=== PATIENT | female | born 1955 | race Caucasian/White ===

== ENCOUNTER → 2017-09-01 16:24 | Outpatient (CLI) | payer OTHER, SELFPAY ==
[2017-09-07 15:51] LABS: HPV Reflexed? NOT INDICATED
== END ==
PROVIDERS: Family Provider Internal Medicine; PCP Internal Medicine; Visit Provider Obstetrics & Gynecology
DX: Z12.4 Encounter for screening for malignant neoplasm of cervix (principal)
CPT/HCPCS: 88175; G0145

== ENCOUNTER → 2017-09-10 08:05 | Outpatient (CLI) | payer OTHER, SELFPAY ==
[2017-09-10 09:53] LABS: Hemoglobin 13.2 g/dl (12.0-15.0); Mean Corp Hgb Conc 33.8 g/gl (32-36); Mean Corpuscular Volume 85.7 fL (81-99); Mean Platelet Vol. 10.3 fl (6.2-12.0); Platelet Count 249 K/mm3 (150-450); RBC Distribution Width CV 13.6 % (11.6-14.6); RBC Distribution Width SD 41.9 fl (35.1-43.9); Red Blood Count 4.55 M/mm3 (4.2-5.4); White Blood Count 5.5 K/mm3 (4.4-11.0)
[2017-09-10 09:54] LABS: Scan Indicated on CBC? Y/N NO
[2017-09-10 10:20] LABS: ALB/GLOB Ratio 1.1 RATIO (0.9-2.4); AST(SGOT) 16 U/L (15-37); Alanine Aminotransfer ALT/SGPT 45 U/L (13-56); Alkaline Phosphatase 116 U/L (45-117); Anion Gap 9 (5-15); BUN 15 mg/dL (7-18); BUN/Creat Ratio 15.9 RATIO (10-20); Calcium,Total 8.7 mg/dL (8.5-10.1); Chloride 101 mmol/L (98-107); Cholesterol 207 mg/dL (200); Creatinine, Serum 0.94 mg/dL (0.55-1.02); EST Glomerular Filtration Rate 64 mL/min (>60); Est Glom Filt Rate - Afr Amer 77 mL/min (>60); Globulin 3.8 g/dL (2.2-4.2); Glucose 195 mg/dL (74-106); High Density Lipoprotein 70 mg/dL; Potassium 4.2 mmol/L (3.5-5.1); Protein, Total 7.8 g/dL (6.4-8.2); Sodium Level 138 mmol/L (136-145); Thyroid Stim Hormone (TSH) 5.43 uIU/mL (0.358-3.74); Triglycerides 91 mg/dL; Very Low Density Lipoprotein 18 mg/dL (5-40)
[2017-09-10 10:23] LABS: Microalbumin,Random Urine 20.1 mg/L (NO RANGE EST.)
[2017-09-10 11:05] LABS: Hemoglobin A1c 8.7 % (4.2-6.3)
== END ==
PROVIDERS: Family Provider Internal Medicine; PCP Internal Medicine; Visit Provider Internal Medicine
DX: I10 Essential (primary) hypertension (principal); E03.9 Hypothyroidism, unspecified; E11.9 Type 2 diabetes mellitus without complications
CPT/HCPCS: 36415; 80053; 80061; 82043; 83036; 84443; 85027

== ENCOUNTER → 2017-09-13 11:51 | Outpatient (CLI) | payer OTHER, SELFPAY ==
--- NOTE | 2017-09-13 11:52 | HPBI_ITS ---
MAMMOGRAPHY - BILATERAL SCREENING REASON FOR EXAM: Female, 62 years old. Routine annual screening examination. PERTINENT HISTORY: Non-contributory. TECHNIQUE: Digital bilateral breast rashawn (3D mammographic acquisition) in the CC and MLO projections. 2-D mediolateral oblique (MLO) and craniocaudad (CC) views of both breasts were obtained. CAD: Full Field Digital Mammography with Computer Added Detection was performed. COMPARISON: Comparison is made with prior examination dated September 11, 2016 and April 29, 2015. FINDINGS: Breast Composition: The breasts are heterogeneously dense, which may obscure small masses. There are no dominant masses or suspicious calcifications. There are 3 ringlike calcified nodules in the upper outer aspect of the right breast. The largest measuring 4.7 mm. These may represent calcifying fibroadenomas. No other significant abnormalities are identified. There has been no significant change since the prior study. HPBI/SCREENING MAMM (CAD), BILAT IMPRESSION: Stable bilateral screening mammogram. Yearly follow-up mammogram recommended. (A) ASSESSMENT CATEGORY: BIRADS Category 2: Benign. A letter regarding these results will be sent to the patient by the facility within 30 days. Approximately 10% of breast cancers are not detected by mammography. A normal mammogram should not delay biopsy of a clinically suspicious abnormality. [id number] Electronically Signed: Wenceslao Muir MD at 13:30 EST Tel [phone], Service support ,
== END ==
PROVIDERS: Family Provider Internal Medicine; PCP Internal Medicine; Visit Provider Obstetrics & Gynecology
DX: Z12.31 Encounter for screening mammogram for malignant neoplasm of breast (principal); Z78.0 Asymptomatic menopausal state
CPT/HCPCS: 77063; 77067

== ENCOUNTER → 2017-09-14 10:56 | Outpatient (CLI) | payer OTHER, SELFPAY ==
--- NOTE | 2017-09-14 10:59 | HPBD_ITS ---
STUDY: DUAL ENERGY X-RAY ABSORPTIOMETRY / DXA REASON FOR EXAM: Female, 62 years old. The patient is postmenopausal. No loss of height. TECHNIQUE: Bone Mineral Density (BMD) measurements of lumbar spine and bilateral hips were obtained. COMPARISON: None. FINDINGS: Lumbar Spine (L1-L4): g/cm2 (1.218) / T-score (0.3) / Z-score (1.8) Findings are suggestive of normal bone density with a low fracture risk. Left Femur Total: g/cm2 (0.991) / T-score (-0.1) / Z-score (1.0) Left Femoral Neck: g/cm2 (0.997) / T-score (-0.3) / Z-score (1.1) Right Femur Total: g/cm2 (0.955) / T-score (-0.4) / Z-score (0.7) Right Femoral Neck: g/cm2 (1.004) / T-score (-0.2) / Z-score (1.1) HPBD/Dexa Bone Density Study (HP) IMPRESSION: The patient is considered normal as outlined below according to World Jose Organization (WHO) criteria with a low fracture risk. Reference Information: The T-score is the number of standard deviations above or below the standard which is normal for young adults at their peak bone mineral density. The World Health Organization (WHO) interprets the T-scores as follows: Above -1 Normal bone density Between -1 and -2.5 Osteopenia Equal to / or below -2.5 Osteoporosis As a practical clinical guideline, osteopenia may be graded as follows: Mild -1 through -1.5 Moderate -1.6 through -2.0 Severe -2.1 through -2.4 The Z-score is the number of standard deviations above or below age-matched controls. A Z-score of less than -1.5 would be considered abnormal. References: 1. NIH Osteoporosis and Related Bone Diseases http://www.osteo.org 2. International Society for Clinical Densitometry http://www.iscd.org 3. National Osteoporosis Foundation http://www.nof.org Electronically Signed: Wenceslao Muir MD at 12:31 EST Tel [phone], Service support ,
== END ==
PROVIDERS: Family Provider Internal Medicine; PCP Internal Medicine; Visit Provider Obstetrics & Gynecology
DX: Z78.0 Asymptomatic menopausal state (principal)
CPT/HCPCS: 77080

== ENCOUNTER → 2020-08-02 10:00 | Outpatient (CLI) | payer MEDICARE, OTHER, SELFPAY ==
[2020-08-02 15:21] LABS: Probe Check PASS; Specimen Processing Control PASS
== END ==
PROVIDERS: Referring Provider Surgery; Visit Provider Surgery
DX: U07.1 COVID-19 (principal)
CPT/HCPCS: 87426; 87635; C9803; U0002

== ENCOUNTER 2024-07-08 18:36 | Emergency (ER) | payer MEDICARE, OTHER, SELFPAY ==
[2024-07-08 18:37] VITALS: BP 137/74; PULSE 102; RESP 16; TEMP 36.7; O2SAT 98; BMI 24.9
--- NOTE | 2024-07-08 18:53 | EKG12_ITS ---
Test Reason : DYSRHYTHMIA Blood Pressure : */* mmHG Vent. Rate : 97 BPM Atrial Rate : 97 BPM P-R Int : 146 ms QRS Dur : 70 ms QT Int : 356 ms P-R-T Axes : 23 -42 -1 degrees QTcB Int : 452 ms Normal sinus rhythm Left axis deviation Abnormal ECG Confirmed by KEN LUND, LIZET ([id number]), photography editor SHELBY BRANNON ([id number]) on 07/12/2024 1:38:54 P M Referred By: Confirmed By: LIZET ROGERS MD
--- NOTE | 2024-07-08 18:54 | EX.ED.DYSGE1 ---
HPI History of Present Illness Chief Complaint: Fatigue Informant: patient, spouse/S.O. and family Narrative Narrative: 69-year-old female has been fatigued for about 2 weeks. She had some nausea and vomiting today after eating a piece of fruit. No abdominal pain no chest pain no cough or dyspnea even with exertion, or orthopnea. She has had no other symptoms. No fevers or chills at all. No headaches. No focal neurologic symptoms. Patient just states she has been sleeping a lot. Family states they are concerned because this is not like her which is why they brought her. She lives in [place] here visiting family. No recent medication changes. She is diabetic her sugars have been running good. Denies any recent illness that she can recall. [facility] Medical History (Updated 07/08/24 @ 21:[address] Torsten Huggins MD) Hypothyroidism Type 2 diabetes mellitus Hypertension Encounter for screening for malignant neoplasm of colon Home Medications ?Medication ?Instructions ?Recorded ?Last Taken ?Type amlodipine 5 mg tablet 5 mg PO DAILY 08/13/17 08/16/17 06:10 History citalopram 20 mg tablet 20 mg PO DAILY 08/13/17 Unknown History levothyroxine 100 mcg tablet 100 mcg PO DAILY 08/13/17 08/16/17 06:10 History losartan 25 mg tablet 25 mg PO DAILY 07/30/20 Unknown History insulin glargine 100 unit/mL (3 unit subcut 07/08/24 Unknown History mL) subcutaneous pen (Basaglar KwikPen U-100 Insulin) Allergy/AdvReac Type Severity Reaction Status Date / Time No Known Allergies Allergy Verified 07/08/24 18:40 Family History (Updated 08/30/17 @ 09:41 by Simona Moser) Father Colon cancer Diabetes Skin cancer Sister Thyroid disorder Surgical History (Updated 08/30/17 @ 09:40 by Simona Moser) S/P colonoscopy (~08/16/17) Social History Smoking Status: Never smoker ROS ROS ED Constitutional Constitutional ED: Reports anorexia and fatigue; Denies body ache(s), chills or fever(s) Eyes Eyes: Denies change in vision or diplopia ENT ENT ED: Denies rhinorrhea or sore throat Cardiovascular Cardiovascular: Denies chest pain or palpitations Respiratory/Chest Respiratory/Chest: Denies cough or dyspnea Gastrointestinal Gastrointestinal: Reports nausea and vomiting; Denies abdominal pain or diarrhea Genitourinary Genitourinary ED: Denies dysuria or hematuria Musculoskeletal Musculoskeletal: Denies back pain or neck pain Integumentary Denies abscess or rash Neurologic Neurologic: Denies headache(s), paresthesias or weakness Psychiatric Psychiatric: Denies anxiety or suicidal thoughts EXAM Physical Exam Const Vital Signs: 07/08/24 18:37 07/08/24 20:00 07/08/24 20:48 Temperature 98.1 F 98.1 F Temperature Source Temporal Temporal Pulse Rate 102 H 92 Respiratory Rate 16 23 H Respiratory Effort Normal Non-Labored Respiratory Pattern Normal Blood Pressure 137/74 H 118/66 Blood Pressure Mean 95 83 Pulse Ox 98 94 Oxygen Delivery Method Room Air Room Air Positive well nourished and well developed General Appearance ED: well developed and NAD HEENT Reports moist mucous membranes normocephalic and atraumatic Eyes PERRL and EOMs intact bilaterally Neck full ROM, no lymphadenopathy and supple Neck Narrative: No palpable thyromegaly Resp normal respiratory effort and clear to auscultation bilaterally Cardio regular rate, regular rhythm and no murmurs Rate: Negative for tachycardic GI non-tender and non-distended Auscultation: normoactive bowel sounds Palpation: soft Back/Spine no CVA tenderness General Back: other FROM Extremity normal to inspection General Extremety ED: Negative for edema, pulses abnormal or tenderness General Extremity: Negative for edema or pulses abnormal Neuro oriented x3, CN's II-XII intact bilaterally and no sensory deficits noted Sensorium / Orientation: awake and alert Motor Exam: strength 5/5 throughout Psych mental status grossly normal Skin no rashes or lesions noted and no wounds MDM MDM MDM Narrative Medical decision making narrative: 69-year-old diabetic female, no urinary symptoms, respiratory symptoms, she vomited today for the first time and has been fatigued for 2 weeks. Broad differential. Cardiopulmonary, anemia, metabolic abnormalities are possible, also infection such as mononucleosis, thyroid imbalance. Blood work shows worrisome leukocytosis, significant hyponatremia along with hypochloremia, DELMER possibly due to dehydration, elevated troponin in context of a normal EKG (except for left axis but no old available), and elevated alkaline phosphatase but normal liver enzymes otherwise, and a significantly elevated TSH. The patient is on thyroid replacement medication and the dose has not changed and she has been compliant with it. Monotest is negative. Two-view chest x-ray my interpretation is normal, radiology is in agreement. I reexamined the patient she does have some tenderness in the lateral right lower quadrant. She denies ever experiencing any pain in this area or anywhere else in her abdomen in the last month that she can recall. Given all of this I think a CT of the abdomen/pelvis is warranted. I reviewed the images as well as result which I agree with. It is consistent with a periappendiceal abscess/collection 7 x 9 x 5.9 cm containing gas with an appendicolith and dilated 1.5 cm appendix. Zosyn started. Discussed with surgery who recommends IR drainage with a drain, surgery not indicated from him at this time, and since we do not have IR here on the weekends, he recommends transfer given her leukocytosis, so that she can get it drained as soon as possible. Discussed with family, we decided on [facility]. Spoke with Dr. Flores there who accepts the patient and agrees with all of the above, patient likely to get IR procedure tomorrow, Wednesday. Zosyn is being given, and I am letting the patient have clear fluids and some crackers if she wishes in the meantime Lab Data Attestation: I reviewed the patient's lab results. Labs: Laboratory Results - last 24 hr 07/08/24 07/08/24 19:03 20:35 WBC 20.5 H RBC 3.51 L Hgb 10.2 L Hct 30.5 L MCV 86.9 MCH 29.1 MCHC 33.4 RDW Std Deviation 42.8 RDW Coeff of Noah 13.5 Plt Count 365 MPV 8.5 Immature Gran % (Auto) 1.100 H Neut % (Auto) 78.1 H Lymph % (Auto) 8.2 L [place] % (Auto) 12.3 H Eos % (Auto) 0.1 Baso % (Auto) 0.2 Absolute Neuts (auto) 16.0 H Absolute Lymphs (auto) 1.68 Nucleated RBC % 0 Differential Comment SCANNED Diff Path Review May foll Sodium 123 L Potassium 4.3 Chloride 91 L Carbon Dioxide 22.0 Anion Gap 10 BUN 22 H Creatinine 1.35 H Estim Creat Clear Calc 36.19 Est GFR (MDRD) Af Amer 50 L Est GFR (MDRD) Non-Af 41 L BUN/Creatinine Ratio 16.3 Glucose 257 H Calcium 8.6 Total Bilirubin 0.70 AST 40 H ALT 55 Alkaline Phosphatase 311 H Troponin I High Sens 58 H Total Protein 7.6 Albumin 2.2 L Globulin 5.4 H Albumin/Globulin Ratio 0.4 L Lipase 55 TSH 11.200 H Urine Color Yellow Urine Clarity Clear Urine pH 6.0 Ur Specific [place] 1.010 Urine Protein 30 H Urine Glucose (UA) Normal Urine Ketones Negative Urine Occult Blood 10 H Urine Nitrite Negative Urine Bilirubin Negative Urine Urobilinogen Normal Ur Leukocyte Esterase 25 H Urine RBC 0-5 SEEN Urine WBC 0-5 SEEN Ur Squamous Epith Cells 5-10 SEEN Ur Transition Epith Cell 5-10 SEEN Urine Bacteria RARE Urine Mucus 0 SEEN Monoscreen Negative Radiography Diagnostic Testing: Clinical Impression(s) from Imaging Studies Chest X-Ray 07/08/24 19:25 IMPRESSION: No radiographic evidence of acute cardiopulmonary disease. Electronically Signed: Rebecca Smith MD at 20:02 EST Reading Location ID and State: Celia Baer MD Tel , Service support , Abdomen/Pelvis CT 07/08/24 19:47 IMPRESSION: Periappendiceal collection consistent with acute ruptured appendicitis. Electronically Signed: Rebecca Smith MD at 20:49 EST Reading Location ID and State: Celia Baer MD Tel , Service support , Rhythm Strip Rhythm Strip: Sinus Rhythm Rate: 97 Ectopy: None EKG Initial EKG: Attestation: I personally reviewed and interpreted this EKG as follows: Interpretation: Sinus Rhythm, No Acute Injury Pattern and LAFB Comments: leftward axis; nml intervals; otherwise nml EKG Prior EKG tracings: not available for review Prior: No Prior Management Discussion w/another healthcare provider: Forensic Chemist (Surgery Dr. Montgomery) and Radiologist Critical Care Time Critical Care Time: Yes Critical care time (excluding procedures): 30-74 minutes (34 min), Including time spent:, Discussing w/Patient &/or Family/Violin Restorer, Discussing w/Consultants, Arranging Admission or Transfer and Performing Direct Patient Care at Bedside Discharge Plan Triage Chief Complaint: Fatigue ED Provider: Torsten Huggins Dx/Rx/DC Orders Clinical Impression: Acute appendicitis with rupture, Abscess, periappendiceal, Acute hyponatremia, DELMER (acute kidney injury), Hypothyroid Prescriptions: No Action metformin 500 MG tablet 1,000 mg PO BID amlodipine 5 MG tablet 5 mg PO DAILY levothyroxine 100 MCG tablet 100 mcg PO DAILY citalopram 20 MG tablet 20 mg PO DAILY syqbcdawusvo-Dt-xsiu-minerals 1 EACH tablet 2 ea PO DAILY ascorbic acid (vitamin C) 250 MG tablet,chewable 1,000 mg PO DAILY losartan 25 MG tablet 25 mg PO DAILY pravastatin 20 MG tablet 20 mg PO QHS empagliflozin 25 MG tablet 25 mg PO DAILY Primary Care Provider: KAIA ARAIZA Referrals: KAIA ARAIZA [Other] Print Language: Malaysian Disposition Disposition: Acute Care Hospital Discharge Location: [facility]
[2024-07-08 19:13] LABS: Absolute Lymphocyte Count 1.68 X10^3/uL (0.83-4.51); Basophil# 0.05 X10^3/uL; Basophil% 0.2 % (0-1); Eosinophil# 0.03 X10^3/uL; Eosinophils% 0.1 % (0-5); Hematocrit 30.5 % (37-47); Hemoglobin 10.2 g/dL (12.0-15.0); Lymphocyte # 1.68 X10^3/ul (0.83-4.51); Lymphocyte % 8.2 % (19-41); Mean Corp Hgb Conc 33.4 g/dL (32-36); Mean Corpuscular Hgb 29.1 pg (27.0-32.0); Mean Corpuscular Volume 86.9 fL (81-99); Mean Platelet Vol. 8.5 fl (6.2-12.0); Monocyte# 2.52 X10^3/uL; Monocyte% 12.3 % (0-10); NRBC Flagged by Analyzer 0 % (0-5); Neutrophil % 78.1 % (47-70); POSITIVE DIFFERENTIAL YES; Platelet Count 365 K/mm3 (150-450); RBC Distribution Width CV 13.5 % (11.6-14.6); RBC Distribution Width SD 42.8 fl (35.1-43.9); Red Blood Count 3.51 M/mm3 (4.2-5.4); White Blood Count 20.5 K/mm3 (4.4-11.0)
--- NOTE | 2024-07-08 19:25 | RAD_ITS ---
INDICATION: weakness, vomiting EXAMINATION/TECHNIQUE: X-RAY - XR Chest 2 Views COMPARISON: FINDINGS: LINES/DEVICES: None. LUNGS: No consolidation, edema or effusion. No pneumothorax. MEDIASTINUM AND CARDIOVASCULAR STRUCTURES: Cardiac silhouette not enlarged. Central airways and mediastinal contour are unremarkable. BONES AND SOFT TISSUES: Unremarkable. RAD/Chest PA and Lateral IMPRESSION: No radiographic evidence of acute cardiopulmonary disease. Electronically Signed: Rebecca Smith MD at 20:02 EST Reading Location ID and State: [id number] / Tel , Service support ,
[2024-07-08 19:36] LABS: Differential Indicated SCAN CRITERIA MET
[2024-07-08 19:43] LABS: ALB/GLOB Ratio 0.4 RATIO (0.9-2.4); AST(SGOT) 40 U/L (15-37); Alanine Aminotransfer ALT/SGPT 55 U/L (13-56); Albumin, Serum 2.2 g/dL (3.2-5.0); Alkaline Phosphatase 311 U/L (45-117); Anion Gap 10 (5-15); BUN 22 mg/dL (7-18); BUN/Creat Ratio 16.3 RATIO (10-20); Calcium,Total 8.6 mg/dL (8.5-10.1); Chloride 91 mmol/L (98-107); Creatinine, Serum 1.35 mg/dL (0.55-1.02); EST Glomerular Filtration Rate 41 mL/min (>60); Est Glom Filt Rate - Afr Amer 50 mL/min (>60); Estimated Creatinine Clearance 36.19 ml/min; Globulin 5.4 g/dL (2.2-4.2); Glucose 257 mg/dL (74-106); Potassium 4.3 mmol/L (3.5-5.1); Protein, Total 7.6 g/dL (6.4-8.2); Sodium Level 123 mmol/L (136-145); Troponin-I HS 58 pg/mL (3.0-54.0)
[2024-07-08 19:47] LABS: Internal QC Validated? YES +Cl - CLEAR BKGD; Monotest Negative (Negative)
--- NOTE | 2024-07-08 19:47 | CT_ITS ---
We are attempting to reach an attending provider to discuss findings. An addendum with communication details will be sent when the communication is complete. EXAM: CT ABDOMEN AND PELVIS WITH INTRAVENOUS CONTRAST CLINICAL INDICATION: n/v, leukocytosis TECHNIQUE: Helically acquired images were obtained of the abdomen and pelvis with intravenous contrast. This CT exam was performed using one or more of the following dose reduction techniques: automated exposure control, adjustment of the mA and/or kV according to patient size, and/or use of iterative reconstruction technique. CONTRAST: IV 75mL Isovue-370 COMPARISON: No relevant prior studies available. FINDINGS: LOWER THORAX: Unremarkable. Lung bases are clear. No cardiomegaly. No significant pericardial effusion. ABDOMEN: LIVER: Unremarkable. Homogeneous. No focal mass. GALLBLADDER AND BILE DUCTS: Unremarkable. No calcified gallstones. No gallbladder distention or wall edema. No intra- or extrahepatic biliary ductal dilation. PANCREAS: Unremarkable. No focal cystic or solid mass. SPLEEN: Unremarkable. Normal size without focal cystic or solid mass. ADRENALS: Unremarkable. No nodules. KIDNEYS AND URETERS: Unremarkable. Normal renal size and position. No hydronephrosis. STOMACH AND BOWEL: No proximal small bowel obstruction. PELVIS: APPENDIX: 7 x 9 x 5.9 cm gas-containing periappendiceal collection in the right lower quadrant along the medial aspect of the cecum, highly suspicious for acute appendicitis with contained perforation. No free air or free fluid. The appendix is dilated measuring up to 1.5 cm. 0.6 cm appendicolith at the base. Moderate stranding of the periappendiceal and pericecal fat. BLADDER: Unremarkable. REPRODUCTIVE: Unremarkable as visualized. No mass. ABDOMEN and PELVIS: INTRAPERITONEAL SPACE: No ascites. No free air. BONES/JOINTS: Unremarkable. No suspicious lytic or blastic abnormality. SOFT TISSUES: Unremarkable. No discrete abdominal or pelvic wall hernia. VASCULATURE: Unremarkable. Abdominal aorta is normal in caliber. LYMPH NODES: Unremarkable. No enlarged lymph nodes. CT/Abdomen/Pelvis W IV Cont ONLY IMPRESSION: Periappendiceal collection consistent with acute ruptured appendicitis. Electronically Signed: Rebecca Smith MD at 20:49 EST Reading Location ID and State: [id number] / Tel , Service support ,
[2024-07-08 19:48] LABS: Record Kit Lot#, Mono 13241033
[2024-07-08] MEDS: 0.9% Normal Saline (1000mL) 1,000 ML 999 ML IV (19:59)
[2024-07-08 20:00] VITALS: BP 118/66; PULSE 92; RESP 23; TEMP 36.7; O2SAT 94
[2024-07-08 20:10] LABS: Differential Comment SCANNED
[2024-07-08 20:28] LABS: Lipase 55 U/L (13-75)
[2024-07-08] MEDS: 0.9% Normal Saline (1000mL) 1,000 ML 150 ML IV (20:38)
[2024-07-08 20:44] LABS: Mucous, Urine 0 SEEN /hpf (<or=2+)
[2024-07-08 20:49] LABS: Color, Urine Yellow (Yellow); Glucose, Dipstick Normal (Normal); Ketone-Dipstick Negative (Negative); Leukocyte Esterase-Dipstick 25 /ul (Negative); Nitrite-Dipstick Negative (Negative); Occult Blood-Urine 10 /ul (Negative); Protein-Dipstick 30 mg/dl (Negative); Urine Bilirubin Dipstick Negative (Negative); Urine Clarity Clear (Clear); Urine Urobilinogen Normal (Normal)
[2024-07-08 20:56] LABS: Bacteria RARE /hpf (None Seen); Red Blood Cells-Urine 0-5 SEEN /hpf (0-5); Squamous Epithelial Cells - UA 5-10 SEEN /hpf (5-10); Transitional Epithelial - Ur 5-10 SEEN /hpf (0-5); White Blood Cells 0-5 SEEN /hpf (0-5)
[2024-07-08 21:00] VITALS: BP 114/60; PULSE 92; RESP 25; TEMP 36.2; O2SAT 94
[2024-07-08] MEDS: Piperacil/Tazobactam 3.375 GM in 0.9% Normal Saline (50mL MB+) 50 ML IV (21:17)
[2024-07-08 21:30] LABS: Troponin-I HS 28 pg/mL (3.0-54.0)
[2024-07-08 22:00] VITALS: BP 112/58; PULSE 84; RESP 18; TEMP 36.2; O2SAT 91
[2024-07-08 23:00] VITALS: BP 111/61; PULSE 81; RESP 18; TEMP 37.2; O2SAT 94
[2024-07-09] VITALS: BP 114/57; PULSE 82; RESP 17; TEMP 37.2; O2SAT 92
[2024-07-09 01:00] VITALS: BP 98/49; PULSE 81; RESP 14; TEMP 36.4; O2SAT 92
[2024-07-09 02:00] VITALS: BP 98/49; PULSE 81; RESP 14; TEMP 36.4; O2SAT 92
[2024-07-11 15:14] LABS: Pathologist Review Reviewed
== END 2024-07-09 02:10 | disposition short-term general hospital (02) ==
PROVIDERS: Emergency Provider Emergency Medicine; Visit Provider Emergency Medicine
DX: K35.32 Acute appendicitis with perforation, localized peritonitis, and gangrene, without abscess (principal); E11.9 Type 2 diabetes mellitus without complications; Z79.4 Long term (current) use of insulin; I10 Essential (primary) hypertension; E03.9 Hypothyroidism, unspecified; N17.9 Acute kidney failure, unspecified; E87.1 Hypo-osmolality and hyponatremia
CPT/HCPCS: 71046; 74177; 80053; 81001; 83690; 84443; 84484; 85025; 86308; 93005; 99285; Q9967

== ENCOUNTER → 2025-06-07 | Outpatient (CLI) | payer MEDICARE, OTHER, SELFPAY ==
--- NOTE | 2025-06-07 15:25 | BD_ITS ---
PROCEDURE: DEXA BONE DENSITY STUDY 06/07/2025 REASON FOR EXAM: F, age 70 y/o . Postmenopausal. TECHNIQUE: Procedure Code: BDDBD Modality: DX Procedure: DEXA BONE DENSITY STUDY COMPARISON: Prior study dated September 14, 2017. FINDINGS: BMD and T-SCORES Lumbar spine: -0.8 g/cm2, T-score 1.4 Levels: L1 through L4 Change from prior: Loss of 11.3%. Left femoral neck: 0.711 g/cm2, T-score -1.2 Femoral neck comparison data not recommended for monitoring change. Left total hip: 0.783 g/cm2, T-score -1.3 Change from prior: Loss of 15.4%. Right femoral neck: 0.695 g/cm2, T-score -1.4 Femoral neck comparison data not recommended for monitoring change. Right total hip: 0.787 g/cm2, T-score -1.3 Change from prior: Loss of 11.5%. The World Health Organization has defined the following categories based on bone density: Normal bone density: T-score equal to or greater than -1.0 Osteopenia: T-score between -1.0 and -2.5 Osteoporosis: T-score equal to or less than -2.5 FRAX (or Comparable) Fracture Risk Assessment: 10 Year Probability of Fracture: Major Osteoporotic Fracture: 16% Hip Fracture: 2.2% (Note: FRAX is not to be reported in setting of normal range bone density, osteoporosis on DEXA, known history of osteoporosis, prior osteoporotic hip or vertebral fracture, or for any patient undergoing pharmacological treatment for bone loss.) The National Osteoporosis Foundation (NOF) recommends pharmacological treatment for patients with a FRAX 10-year risk of 3% or higher for a hip fracture, or 20% or higher for a major osteoporotic fracture, to prevent osteoporosis and reduce fracture risk. The patient does meet the pharmacological treatment recommendations for prevention of osteoporosis. BD/Dexa Bone Density Study IMPRESSION: OSTEOPENIA. Recommend follow-up as clinically warranted. Reading Location: [place] [id number]
== END | disposition home or self-care (01) ==
LOC: OPBD 15:23
PROVIDERS: PCP Internal Medicine; Referring Provider Internal Medicine; Visit Provider Internal Medicine
DX: Z78.0 Asymptomatic menopausal state (principal)
CPT/HCPCS: 77080